=== PATIENT | female | born 1980 | race Two or more races ===

== ENCOUNTER 2021-06-14 10:32 | Outpatient (CLI) | payer OTHER | END 2021-06-14 10:38 | disposition home or self-care (01) | LOC: MAMO-SONO 10:32 | DX: N64.89 Other specified disorders of breast (principal); Z12.31 Encounter for screening mammogram for malignant neoplasm of breast ==

== ENCOUNTER 2025-01-15 13:53 | Emergency (ER) | payer OTHER ==
[~2025-01-15] VITALS: Ht 154.9 cm; Wt 52.2 kg
[2025-01-15] MEDS ORDERED: CATAPRES0.3 MG PO (15:58)
[2025-01-15] MEDS ORDERED: COZAAR25 MG PO (15:58)
[2025-01-15] MEDS ORDERED: RAYOS1 MG PO (15:59)
[2025-01-15] MEDS ORDERED: LACTOBACILLUS ACIDOPHILUS 1 CAP CAP PO ONE ×2 (17:00→17:17)
[2025-01-15] MEDS ORDERED: HYOSCYAMINE SULFATE 0.125 MG TAB.SUBL SL ONE (17:00)
[2025-01-15] MEDS ORDERED: HYOSCYAMINE SULFATE 0.125 MG TAB.SUBL ONE (17:17)
[2025-01-15 17:38] LABS: BASO % 0.2 % (0.1-1.2); HEMATOCRIT 34.9 % (34.1-44.9); LYMPH # 0.43 (1.18-3.74); MEAN CORPUSCULAR HEMOGLOBIN 29.6 pg (25.6-32.2); MONO # 0.37 (0.24-0.82); MONO % 6.9 % (4.7-12.5); NEUT # 4.58 (1.56-6.13); NEUT % 84.7 % (34.0-71.1); PLATELET COUNT 377 K/uL (163-369); RED BLOOD COUNT 4.06 M/uL (3.93-5.22); RED CELL DISTRIBUTION WIDTH 15.4 % (11.6-14.4)
[2025-01-15 17:58] LABS: PARTIAL THROMBOPLASTIN TIME 25.3 SECONDS (22.0-34.0); PROTHROMBIN TIME 10.9 SECONDS (9.0-11.5)
[2025-01-15 18:02] LABS: ALBUMIN 3.4 gm/dL (3.4-5.0); BILIRUBIN TOTAL 0.26 mg/dL (0.3-1.2); CALCIUM 8.8 mg/dL (8.5-10.1); CREATININE SERUM 0.71 mg/dL (0.55-1.02); GFR 89.02; GLOBULINA 4.8 G/DL (2.4-3.5); POTASSIUM 4.3 mEq/L (3.5-5.1); TOTAL PROTEIN 8.2 gm/dL (6.4-8.2)
== END 2025-01-15 21:04 | disposition home or self-care (01) ==
LOC: ER 14:04
PROVIDERS: Emergency Medicine
DX: K52.9 Noninfective gastroenteritis and colitis, unspecified (principal); J32.9 Chronic sinusitis, unspecified; I10 Essential (primary) hypertension

== ENCOUNTER → 2025-01-24 | Emergency (ER) | payer OTHER ==
[~2025-01-24] VITALS: Ht 154.9 cm; Wt 51.7 kg
[~2025-01-24] MED LIST: CATAPRES0.3 MG PO; COZAAR25 MG PO; RAYOS1 MG PO
== END | disposition left against medical advice (07) ==
LOC: ER 10:24
DX: Z53.21 Procedure and treatment not carried out due to patient leaving prior to being seen by health care provider (principal)